=== PATIENT | male | born 1940 | race Caucasian/White ===

== ENCOUNTER 2019-04-11 09:05 | Inpatient (IN) ==
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
[2019-04-11 11:13] LABS: Appearance,Urine CLEAR; Bacteria,Urine 0 /hpf (0); Bilirubin,Urine NEG (NEG); Color,Urine AMBER; Culture Indicated,Urine NO; Glucose,Urine (UA) NEGATIVE (NEG); Ketones,Urine NEG (NEG); Leukocyte Esterase,Urine NEG /uL (NEG); Mucus,Urine MOD /hpf (0); Nitrate,Urine NEG (NEG); Protein,Urine 30 mg/dL (NEG); Urine Blood NEG mg/dL (<0.03); Urine Hyaline Cast 1 /lpf (0-2); Urine RBC < 1 /hpf (0-1); Urine Squamous Epithelial Cell 0 /hpf (0-4); Urine WBC 1 /hpf (0-4); Urobilinogen,Urine NEG (NEG)
[2019-04-11] MEDS ORDERED: HALOPERIDOL LACTATE 5 MG/ML VIAL IM ONE (11:41)
[2019-04-11 13:46] LABS: Basophils # (Auto) 0 K/mcL (0.0-0.3); Basophils % (Auto) 0.4 % (0.0-2.0); Eosinophils # (Auto) 0.1 K/mcL (0.0-0.7); Eosinophils % (Auto) 1.1 % (0.0-7.0); Granulocytes % (Auto) 62.6 % (38.0-78.0); Hemoglobin 14.1 g/dL (13.5-16.5); Lymphocytes # (Auto) 2.6 K/mcL (1.5-4.8); Lymphocytes % (Auto) 27.4 % (15.5-49.0); Mean Cell Volume 92.3 fL (80.0-100.0); Mean Corpuscular HGB Conc 33.5 g/dL (31.0-36.0); Mean Platelet Volume 7.8 fL (7.4-10.4); Monocytes # (Auto) 0.8 K/mcL (0.1-0.9); Monocytes % (Auto) 8.5 % (1.0-12.0); Platelet Count 201 K/mcL (140-440); RBC 4.55 M/mcL (4.50-5.90); Red Cell Distribution Width 14.1 % (11.5-14.5); WBC 9.6 K/mcL (4.5-11.0)
[2019-04-11 13:57] LABS: ALT/SGPT 17 U/l (0-40); AST/SGOT 29 U/l (0-37); Albumin 3.8 gm/dL (3.2-5.2); Albumin/Globulin Ratio 1.4 (1.0-2.3); Alkaline Phosphatase 103 U/L (39-117); Bilirubin,Total 0.7 mg/dL (0.0-1.0); Blood Urea Nitrogen 16 mg/dl (8-23); Calcium 8.7 mg/dl (8.6-10.4); Carbon Dioxide 22 mmol/L (22-30); Chloride 107 mmol/L (96-108); Globulin 2.8 gm/dL (2.2-3.7); Glomerular Filtration Rate 86; Glucose 104 mg/dL (70-105)
--- NOTE | 2019-04-11 15:08 | XRay Report ---
HISTORY: Chest congestion and chest pain FINDINGS: There is a vague peripheral lung nodule laterally in the right upper lobe which measures approximately 3 x 5 mm in size. This was not seen on the prior chest x-rays. There may be mild COPD. There is no evidence of pneumonia or adenopathy. The heart size is normal. There is no congestive heart failure or pleural effusion. There are powerpacks for brain stimulators located in the pectoral region bilaterally. The electrodes extend into the neck. Severe osteoarthritis is present in the left shoulder. IMPRESSION: Possible small lung nodule in the right upper lobe. Possible mild COPD No acute abnormality Interpreted and Authenticated by: hCester Rutherford 04/11/19
[2019-04-11] MEDS ORDERED: OLANZapine 10 MG VIAL IM PRN ×2 (16:20→17:27)
[2019-04-11] MEDS ORDERED: BISACODYL 10 MG SUPP.RECT PR PRN ×2 (16:20→17:27)
[2019-04-11] MEDS ORDERED: HALOPERIDOL LACTATE 5 MG/ML VIAL IV PRN ×2 (16:20→17:27)
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
[2019-04-11] MEDS ORDERED: ACETAMINOPHEN 325 MG TABLET PO ONE (16:43)
[2019-04-11 18:20] LABS: ALT/SGPT 23 U/l (0-40); AST/SGOT 30 U/l (0-37); Albumin 3.9 gm/dL (3.2-5.2); Albumin/Globulin Ratio 1.4 (1.0-2.3); Alkaline Phosphatase 105 U/L (39-117); Bilirubin,Total 0.6 mg/dL (0.0-1.0); Blood Urea Nitrogen 17 mg/dl (8-23); Carbon Dioxide 26 mmol/L (22-30); Chloride 107 mmol/L (96-108); Globulin 2.8 gm/dL (2.2-3.7); Glomerular Filtration Rate 64; Glucose 123 mg/dL (70-105)
[2019-04-11] MEDS ORDERED: DOCUSATE SODIUM 100 MG CAPSULE PO SCH (21:00)
[2019-04-11] MEDS ORDERED: 0.9 % SODIUM CHLORIDE 10 ML SYRINGE IV SCH (22:00)
[2019-04-11] MEDS: DOCUSATE SODIUM 100 MG CAPSULE PO SCH (22:04)
[2019-04-11] MEDS: 0.9 % SODIUM CHLORIDE 10 ML SYRINGE IV SCH (22:05)
[2019-04-12] MEDS: 0.9 % SODIUM CHLORIDE 10 ML SYRINGE IV SCH ×3 (05:20→22:00)
[2019-04-12 06:26] LABS: Hematocrit 40.9 % (41.0-55.0); Hemoglobin 13.5 g/dL (13.5-16.5); Mean Platelet Volume 8.2 fL (7.4-10.4); Platelet Count 188 K/mcL (140-440); Red Cell Distribution Width 14.2 % (11.5-14.5)
[2019-04-12 06:28] LABS: ALT/SGPT 19 U/l (0-40); AST/SGOT 25 U/l (0-37); Albumin 3.6 gm/dL (3.2-5.2); Albumin/Globulin Ratio 1.4 (1.0-2.3); Alkaline Phosphatase 98 U/L (39-117); Bilirubin,Total 0.8 mg/dL (0.0-1.0); Blood Urea Nitrogen 19 mg/dl (8-23); Calcium 8.9 mg/dl (8.6-10.4); Carbon Dioxide 26 mmol/L (22-30); Chloride 109 mmol/L (96-108); Globulin 2.5 gm/dL (2.2-3.7); Glomerular Filtration Rate 82; Glucose 90 mg/dL (70-105)
[2019-04-12 07:35] LABS: Eosinophils % (Manual) 1 % (0-7); Lymphocytes % 40 % (15-49); Monocytes % (Manual) 7 % (1-12); Nucleated Red Blood Cells 1 % (0-0); Platelet Estimate NORMAL (NORMAL); RBC Morphology NORMAL (NORMAL); Reactive Lymphocytes 11 % (0-2); Segmented Neutrophils % 41 % (38-78)
[2019-04-12] MEDS: DOCUSATE SODIUM 100 MG CAPSULE PO SCH ×2 (09:24→20:32)
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
[2019-04-12] MEDS: ACETAMINOPHEN 900 MG/90 ML BOTTLE IV PRN (14:11)
[2019-04-12] MEDS: LEVODOPA PO SCH ×3 (14:13→19:25)
[2019-04-12] MEDS: CARBIDOPA PO SCH ×3 (14:13→19:25)
[2019-04-12] MEDS: ENTACAPONE PO SCH ×3 (14:13→19:25)
[2019-04-12] MEDS ORDERED: OLANZapine 5 MG TABLET PO PRN (14:21)
[2019-04-12] MEDS ORDERED: OLANZapine 10 MG VIAL IM PRN (14:25)
[2019-04-12] MEDS: BRIMONIDINE OPHTH DROPS 1 GTT BOTTLE 5ML OD SCH (20:33)
[2019-04-12] MEDS: TIMOLOL 0.25% OPHTH DROPS BOTTLE 5ML OD SCH (20:35)
[2019-04-12] MEDS ORDERED: LATANOPROST OPHTH DROPS 2.5ML BOTTLE OU SCH (21:00)
[2019-04-13 05:29] LABS: Hematocrit 41.9 % (41.0-55.0); Hemoglobin 13.9 g/dL (13.5-16.5); Mean Corpuscular HGB Conc 33.2 g/dL (31.0-36.0); Mean Platelet Volume 8.1 fL (7.4-10.4); Platelet Count 200 K/mcL (140-440); Red Cell Distribution Width 13.7 % (11.5-14.5); WBC 9.7 K/mcL (4.5-11.0)
[2019-04-13] MEDS: 0.9 % SODIUM CHLORIDE 10 ML SYRINGE IV SCH ×3 (05:43→20:39)
[2019-04-13 05:53] LABS: ALT/SGPT 7 U/l (0-40); AST/SGOT 22 U/l (0-37); Albumin 3.7 gm/dL (3.2-5.2); Albumin/Globulin Ratio 1.4 (1.0-2.3); Alkaline Phosphatase 97 U/L (39-117); Bilirubin,Total 0.6 mg/dL (0.0-1.0); Blood Urea Nitrogen 20 mg/dl (8-23); Calcium 8.4 mg/dl (8.6-10.4); Carbon Dioxide 23 mmol/L (22-30); Chloride 105 mmol/L (96-108); Globulin 2.7 gm/dL (2.2-3.7); Glomerular Filtration Rate 86; Glucose 107 mg/dL (70-105)
[2019-04-13 06:52] LABS: Band Neutrophils % 1 % (0-10); Basophils % (Manual) 2 % (0-2); Eosinophils % (Manual) 4 % (0-7); Lymphocytes % 43 % (15-49); Monocytes % (Manual) 6 % (1-12); Platelet Estimate NORMAL (NORMAL); RBC Morphology NORMAL (NORMAL); Reactive Lymphocytes 2 % (0-2); Segmented Neutrophils % 42 % (38-78)
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
[2019-04-13] MEDS: LEVODOPA PO SCH ×5 (08:20→20:39)
[2019-04-13] MEDS: CARBIDOPA PO SCH ×5 (08:20→20:39)
[2019-04-13] MEDS: ENTACAPONE PO SCH ×5 (08:20→20:39)
[2019-04-13] MEDS: BRIMONIDINE OPHTH DROPS 1 GTT BOTTLE 5ML OD SCH ×2 (08:22→20:44)
[2019-04-13] MEDS: TIMOLOL 0.25% OPHTH DROPS BOTTLE 5ML OD SCH ×2 (08:22→20:47)
[2019-04-13] MEDS: DOCUSATE SODIUM 100 MG CAPSULE PO SCH ×2 (08:22→20:39)
[2019-04-13] MEDS: ACETAMINOPHEN 900 MG/90 ML BOTTLE IV PRN (08:23)
[2019-04-13] MEDS ORDERED: ENOXAPARIN 40 MG/0.4 ML SYRINGE SQ SCH (09:00)
[2019-04-13] MEDS ORDERED: POLYETHYLENE GLYCOL 3350 17 GM PACKET PO PRN ×2 (09:00→11:58)
[2019-04-13] MEDS ORDERED: LACTULOSE 20 GM/30 ML ORAL.SOL PO PRN ×2 (09:00→11:58)
[2019-04-13] MEDS ORDERED: POLYETHYLENE GLYCOL 3350 17 GM PACKET PO ONE (09:00)
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
[2019-04-13] MEDS ORDERED: OLANZapine 5 MG TABLET PO PRN (11:58)
[2019-04-13] MEDS ORDERED: BISACODYL 10 MG SUPP.RECT PR PRN (11:58)
[2019-04-13] MEDS ORDERED: OLANZapine 10 MG VIAL IM PRN (11:58)
[2019-04-13] MEDS: LATANOPROST OPHTH DROPS 2.5ML BOTTLE OU SCH (20:50)
[2019-04-14] MEDS: DOCUSATE SODIUM 100 MG CAPSULE PO SCH ×3 (07:00→21:52)
[2019-04-14] MEDS: CARBIDOPA PO SCH ×6 (07:01→21:52)
[2019-04-14] MEDS: LEVODOPA PO SCH ×6 (07:01→21:52)
[2019-04-14] MEDS: ENTACAPONE PO SCH ×6 (07:01→21:52)
[2019-04-14] MEDS: ENOXAPARIN 40 MG/0.4 ML SYRINGE SQ SCH (07:02)
[2019-04-14] MEDS: TIMOLOL 0.25% OPHTH DROPS BOTTLE 5ML OD SCH ×2 (07:02→21:53)
[2019-04-14] MEDS: BRIMONIDINE OPHTH DROPS 1 GTT BOTTLE 5ML OD SCH ×2 (07:03→21:50)
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
[2019-04-14] MEDS: 0.9 % SODIUM CHLORIDE 10 ML SYRINGE IV SCH ×3 (07:10→21:56)
[2019-04-14] MEDS ORDERED: OLANZapine 10 MG VIAL IM PRN (07:52)
[2019-04-14] MEDS ORDERED: OLANZapine 5 MG TABLET PO PRN (07:52)
[2019-04-14] MEDS ORDERED: DIVALPROEX 125 MG CAP.SPRINK PO SCH (21:00)
[2019-04-14] MEDS ORDERED: QUEtiapine 25 MG TABLET PO SCH (21:00)
[2019-04-14] MEDS ORDERED: OLANZapine 5 MG TABLET PO SCH (21:00)
[2019-04-14] MEDS: MELATONIN 3 MG TABLET PO SCH (21:54)
[2019-04-14] MEDS: LATANOPROST OPHTH DROPS 2.5ML BOTTLE OU SCH (21:55)
[2019-04-15] MEDS ORDERED: OLANZapine 2.5 MG TABLET PO ONE (00:31)
[2019-04-15] MEDS: diphenhydrAMINE 50 MG/ML VIAL ONE ×2 (00:34→00:36)
[2019-04-15] MEDS: diphenhydrAMINE 50 MG/ML VIAL IV ONE ×2 (00:34→00:46)
[2019-04-15] MEDS: ACETAMINOPHEN 900 MG/90 ML BOTTLE IV PRN (00:41)
[2019-04-15] MEDS ORDERED: OLANZapine 10 MG VIAL IM SCH (00:45)
[2019-04-15] MEDS: 0.9 % SODIUM CHLORIDE 10 ML SYRINGE IV SCH ×2 (05:58→07:30)
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
[2019-04-15] MEDS: CARBIDOPA PO SCH ×6 (08:09→23:58)
[2019-04-15] MEDS: ENOXAPARIN 40 MG/0.4 ML SYRINGE SQ SCH (08:09)
[2019-04-15] MEDS: ENTACAPONE PO SCH ×6 (08:09→23:58)
[2019-04-15] MEDS: LEVODOPA PO SCH ×6 (08:09→23:58)
[2019-04-15] MEDS: DOCUSATE SODIUM 100 MG CAPSULE PO SCH (08:15)
[2019-04-15] MEDS: BRIMONIDINE OPHTH DROPS 1 GTT BOTTLE 5ML OD SCH (08:30)
[2019-04-15] MEDS: TIMOLOL 0.25% OPHTH DROPS BOTTLE 5ML OD SCH (08:30)
[2019-04-15] MEDS ORDERED: OLANZapine 10 MG VIAL IM ONE (09:00)
[2019-04-15] MEDS: DIVALPROEX 125 MG CAP.SPRINK PO SCH ×2 (09:25→23:58)
[2019-04-15] MEDS: QUEtiapine 25 MG TABLET PO SCH (23:58)
[2019-04-15] MEDS: MELATONIN 3 MG TABLET PO SCH (23:58)
[2019-04-16] MEDS: DIVALPROEX 125 MG CAP.SPRINK PO SCH ×3 (00:10→20:44)
[2019-04-16] MEDS: 0.9 % SODIUM CHLORIDE 10 ML SYRINGE IV SCH ×4 (00:12→20:15)
[2019-04-16] MEDS: DOCUSATE SODIUM 100 MG CAPSULE PO SCH ×3 (00:15→20:43)
[2019-04-16] MEDS: CARBIDOPA PO SCH ×6 (00:15→20:43)
[2019-04-16] MEDS: ENTACAPONE PO SCH ×6 (00:15→20:43)
[2019-04-16] MEDS: LEVODOPA PO SCH ×6 (00:15→20:43)
[2019-04-16] MEDS: QUEtiapine 25 MG TABLET PO SCH ×2 (00:16→20:44)
[2019-04-16] MEDS: TIMOLOL 0.25% OPHTH DROPS BOTTLE 5ML OD SCH ×3 (00:16→20:09)
[2019-04-16] MEDS: LATANOPROST OPHTH DROPS 2.5ML BOTTLE OU SCH ×2 (00:16→20:11)
[2019-04-16] MEDS: BRIMONIDINE OPHTH DROPS 1 GTT BOTTLE 5ML OD SCH ×3 (00:23→20:05)
[2019-04-16] MEDS ORDERED: OLANZapine 10 MG VIAL IM SCH (01:00)
[2019-04-16] MEDS ORDERED: OLANZapine 10 MG VIAL IM ONE (01:04)
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
[2019-04-16] MEDS: ENOXAPARIN 40 MG/0.4 ML SYRINGE SQ SCH (10:11)
[2019-04-16] MEDS: MELATONIN 3 MG TABLET PO SCH (20:44)
[2019-04-17] MEDS: ACETAMINOPHEN 900 MG/90 ML BOTTLE IV PRN (03:32)
[2019-04-17] MEDS: 0.9 % SODIUM CHLORIDE 10 ML SYRINGE IV SCH ×3 (04:08→21:57)
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
[2019-04-17] MEDS: ENTACAPONE PO SCH ×6 (08:14→20:30)
[2019-04-17] MEDS: LEVODOPA PO SCH ×6 (08:14→20:30)
[2019-04-17] MEDS: CARBIDOPA PO SCH ×6 (08:14→20:30)
[2019-04-17] MEDS: BRIMONIDINE OPHTH DROPS 1 GTT BOTTLE 5ML OD SCH ×2 (11:02→20:02)
[2019-04-17] MEDS: TIMOLOL 0.25% OPHTH DROPS BOTTLE 5ML OD SCH ×2 (11:02→20:02)
[2019-04-17] MEDS: ENOXAPARIN 40 MG/0.4 ML SYRINGE SQ SCH (11:09)
[2019-04-17] MEDS: DOCUSATE SODIUM 100 MG CAPSULE PO SCH ×3 (11:59→20:30)
[2019-04-17] MEDS: DIVALPROEX 125 MG CAP.SPRINK PO SCH ×2 (12:00→20:05)
[2019-04-17] MEDS: LATANOPROST OPHTH DROPS 2.5ML BOTTLE OU SCH (20:02)
[2019-04-17] MEDS: MELATONIN 3 MG TABLET PO SCH (20:05)
[2019-04-17] MEDS: QUEtiapine 25 MG TABLET PO SCH (20:05)
[2019-04-18] MEDS: 0.9 % SODIUM CHLORIDE 10 ML SYRINGE IV SCH ×2 (05:53→14:50)
[2019-04-18] MEDS: ENTACAPONE PO SCH ×3 (08:46→14:50)
[2019-04-18] MEDS: CARBIDOPA PO SCH ×3 (08:46→14:50)
[2019-04-18] MEDS: TIMOLOL 0.25% OPHTH DROPS BOTTLE 5ML OD SCH (08:46)
[2019-04-18] MEDS: LEVODOPA PO SCH ×3 (08:46→14:50)
[2019-04-18] MEDS: ENOXAPARIN 40 MG/0.4 ML SYRINGE SQ SCH (08:47)
[2019-04-18] MEDS: DOCUSATE SODIUM 100 MG CAPSULE PO SCH (08:47)
[2019-04-18] MEDS: BRIMONIDINE OPHTH DROPS 1 GTT BOTTLE 5ML OD SCH (08:47)
[2019-04-18] MEDS: DIVALPROEX 125 MG CAP.SPRINK PO SCH (08:47)
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
[2019-04-18] MEDS ORDERED: OLANZapine 5 MG TABLET PO PRN (16:29)
[2019-04-18] MEDS ORDERED: OLANZapine 10 MG VIAL IM PRN (16:31)
== END 2019-04-18 14:45 | disposition other institution (70) | DRG 71 ==
LOC: ED 09:05 → ICU 17:13 → MEDSUR 04-13 12:51 → UNDODISIN 04-18 14:44
PROVIDERS: ADMIT Internal Medicine; ATTEND Internal Medicine